=== PATIENT | female | born 1990 | race Caucasian/White ===

== ENCOUNTER 2016-11-20 10:24 | Emergency (ER) | payer OTHER ==
[~2016-11-20] VITALS: Ht 154.9 cm; Wt 91.8 kg
[~2016-11-20 10:24] MED LIST: PREDNISONE20 MG PO; VENTOLIN HFA18 GM IH
[2016-11-20 10:57] VITALS: BP 121/80
== END 2016-11-20 12:48 | disposition home or self-care (01) ==
LOC: EME 10:24
DX: J40 Bronchitis, not specified as acute or chronic (principal)
CPT/HCPCS: 94640; 99281; 99284

== ENCOUNTER 2017-03-06 00:34 | Emergency (ER) | payer OTHER ==
[~2017-03-06] VITALS: Ht 154.9 cm; Wt 90.5 kg
[2017-03-06 02:03] VITALS: BP 115/71
== END 2017-03-06 02:04 | disposition home or self-care (01) ==
LOC: EME 00:34
DX: S80.01XA Contusion of right knee, initial encounter (principal); S40.011A Contusion of right shoulder, initial encounter; W20.8XXA Other cause of strike by thrown, projected or falling object, initial encounter; R00.0 Tachycardia, unspecified
CPT/HCPCS: 73010; 73030; 73564; 99281; 99283

== ENCOUNTER 2017-06-07 18:51 | Emergency (ER) | payer OTHER ==
[~2017-06-07] VITALS: Ht 152.4 cm; Wt 82.5 kg
[2017-06-07 18:55] VITALS: BP 119/82
== END 2017-06-07 21:06 | disposition home or self-care (01) ==
LOC: EME 18:51
DX: S60.222A Contusion of left hand, initial encounter (principal); W22.8XXA Striking against or struck by other objects, initial encounter
CPT/HCPCS: 73130; 99281; 99284

== ENCOUNTER 2017-08-10 14:27 | Emergency (ER) | payer OTHER ==
[~2017-08-10] VITALS: Ht 152.4 cm; Wt 85.0 kg
[2017-08-10] MEDS ORDERED: VENTOLIN HFA18 GM IH (17:23)
[2017-08-10 17:28] VITALS: BP 135/68
== END 2017-08-10 17:29 | disposition home or self-care (01) ==
LOC: RME 14:27 → EME 14:27 → RME 17:29
DX: J45.901 Unspecified asthma with (acute) exacerbation (principal)
CPT/HCPCS: 71020; 80048; 84484; 85027; 93005; 94640; 99281; 99284

== ENCOUNTER 2017-10-14 14:13 | Emergency (ER) | payer OTHER ==
[~2017-10-14] VITALS: Ht 152.4 cm; Wt 87.0 kg
[2017-10-14] MEDS ORDERED: PREDNISONE20 MG PO (15:01)
[2017-10-14 15:39] VITALS: BP 136/98
== END 2017-10-14 15:40 | disposition home or self-care (01) ==
LOC: EME 14:13
DX: J45.901 Unspecified asthma with (acute) exacerbation (principal)
CPT/HCPCS: 71020; 99281; 99284; J7512

== ENCOUNTER 2017-11-21 15:52 | Emergency (ER) | payer OTHER ==
[~2017-11-21] VITALS: Ht 152.4 cm; Wt 85.6 kg
[2017-11-21 16:48] LABS: HEMATOCRIT 40.6 % (36.0-46.0); HEMOGLOBIN 13.4 G/DL (11.9-15.5); MCH 29.5 PG (29.0-34.0); MCV 89.2 FL (83-99); PLATELET COUNT 346 K/uL (156-360); RBC DIS.WIDTH-CV 13.2 % (11.8-14.6); RBC DIS.WIDTH-SD 43.2 % (39-53); RED BLOOD COUNT 4.55 M/uL (3.80-5.20); WHITE BLOOD COUNT 11.3 K/uL (4.1-10.2)
[2017-11-21 16:58] LABS: ALBUMIN 4.5 g/dL (3.2-4.8); CHLORIDE 107 mEq/L (99-109); POTASSIUM 3.7 mEq/L (3.7-5.4)
[2017-11-21 16:59] LABS: SODIUM 140 mEq/L (136-147)
[2017-11-21 17:01] LABS: GLUCOSE 109 mg/dL (70-99)
[2017-11-21 17:03] LABS: TOTAL BILIRUBIN 0.3 mg/dL (0.0-1.0)
[2017-11-21 17:04] LABS: ALKALINE PHOSPHATASE 51 IU/L (3-129); CREATININE 0.9 mg/dL (0.6-1.3); GFR ESTIMATE (CALCULATED) > 59 mL/min/
[2017-11-21 17:06] LABS: AST (GOT) 15 IU/L (2-34); UREA NITROGEN (BUN) 12 mg/dL (9-23)
[2017-11-21 17:07] LABS: ALT (GPT) 10 IU/L (3-49)
[2017-11-21 17:14] LABS: QUANTITATIVE HCG < 4.0 MIU/ML
[2017-11-21 18:01] LABS: LIPASE 465 U/L (1.0-51.0)
[2017-11-21 18:54] LABS: APPEARANCE CLOUDY ((CLEAR)); BILIRUBIN NEGATIVE; BLOOD NEGATIVE; COLOR YELLOW ((YELLOW)); GLUCOSE (STRIP) NEGATIVE; KETONES NEGATIVE; LEUKOCYTES NEGATIVE; NITRITE NEGATIVE; PROTEIN (STRIP) NEGATIVE; SPECIFIC GRAVITY 1.017 (1.000-1.030); UROBILINOGEN 0.2 MG/DL (0.2-1.0)
[2017-11-21 19:03] LABS: BACTERIA RARE /HPF; EPITHELIAL CELLS 2+ /HPF; MUCUS TRACE /LPF; RED BLOOD CELLS 0-5 /HPF (0-5); UCUL ADDED? NO; WHITE BLOOD CELLS 0-5 /HPF (0-5)
[2017-11-21] MEDS ORDERED: TRAMADOL HCL50 MG PO (21:41)
[2017-11-21] MEDS ORDERED: ZOFRAN ODT4 MG PO (21:41)
[2017-11-21] MEDS ORDERED: CITROMA296 ML PO (21:42)
[2017-11-21 22:01] VITALS: BP 94/69
== END 2017-11-21 22:02 | disposition home or self-care (01) ==
LOC: EME 15:52
DX: R10.31 Right lower quadrant pain (principal); R74.8 Abnormal levels of other serum enzymes; J45.909 Unspecified asthma, uncomplicated; F31.9 Bipolar disorder, unspecified
CPT/HCPCS: 74177; 76705; 80053; 81003; 83690; 84702; 85027; 99281; 99285; J2405; J3010; J7030

== ENCOUNTER 2017-11-23 16:37 | Emergency (ER) | payer OTHER ==
[~2017-11-23] VITALS: Ht 152.4 cm; Wt 87.0 kg
[~2017-11-23 16:37] MED LIST changes: +CITROMA296 ML PO; +TRAMADOL HCL50 MG PO; +ZOFRAN ODT4 MG PO
[2017-11-23 17:22] LABS: HEMATOCRIT 38.7 % (36.0-46.0); HEMOGLOBIN 12.9 G/DL (11.9-15.5); MCH 29.9 PG (29.0-34.0); MCHC 33.3 G/DL (30.0-36.0); MCV 89.8 FL (83-99); PLATELET COUNT 320 K/uL (156-360); RBC DIS.WIDTH-CV 13.2 % (11.8-14.6); RBC DIS.WIDTH-SD 43.8 % (39-53); RED BLOOD COUNT 4.31 M/uL (3.80-5.20); WHITE BLOOD COUNT 8.9 K/uL (4.1-10.2)
[2017-11-23 17:33] LABS: ALBUMIN 4.4 g/dL (3.2-4.8)
[2017-11-23 17:34] LABS: CHLORIDE 107 mEq/L (99-109); POTASSIUM 4.2 mEq/L (3.7-5.4); SODIUM 141 mEq/L (136-147)
[2017-11-23 17:36] LABS: GLUCOSE 98 mg/dL (70-99); TOTAL PROTEIN 7.6 g/dL (6.4-8.3)
[2017-11-23 17:38] LABS: TOTAL BILIRUBIN 0.3 mg/dL (0.0-1.0)
[2017-11-23 17:39] LABS: ALKALINE PHOSPHATASE 52 IU/L (3-129)
[2017-11-23 17:40] LABS: CREATININE 0.9 mg/dL (0.6-1.3); GFR ESTIMATE (CALCULATED) > 59 mL/min/
[2017-11-23 17:41] LABS: AST (GOT) 12 IU/L (2-34); DIRECT BILIRUBIN 0.1 mg/dL (0.0-0.3); UREA NITROGEN (BUN) 11 mg/dL (9-23)
[2017-11-23 17:43] LABS: ALT (GPT) 10 IU/L (3-49); LIPASE 19 U/L (1.0-51.0)
[2017-11-23] MEDS ORDERED: AUGMENTIN875 MG PO (18:22)
[2017-11-23 19:21] VITALS: BP 128/78
== END 2017-11-23 19:21 | disposition home or self-care (01) ==
LOC: EME 16:37
PROVIDERS: Emergency Medicine
DX: H66.91 Otitis media, unspecified, right ear (principal); R10.84 Generalized abdominal pain; J45.909 Unspecified asthma, uncomplicated; F31.9 Bipolar disorder, unspecified
CPT/HCPCS: 80048; 80076; 83690; 85027; 99281; 99283

== ENCOUNTER 2017-12-31 23:19 | Emergency (ER) | payer OTHER ==
[~2017-12-31] VITALS: Ht 152.4 cm; Wt 83.1 kg
[~2017-12-31 23:19] MED LIST changes: +AUGMENTIN875 MG PO
[2018-01-01 01:40] VITALS: BP 121/85
== END 2018-01-01 03:32 | disposition home or self-care (01) ==
LOC: EME 23:19
DX: S80.01XA Contusion of right knee, initial encounter (principal)
CPT/HCPCS: 73564; 99281; 99283

== ENCOUNTER 2018-01-08 11:34 | Emergency (ER) | payer OTHER ==
[~2018-01-08] VITALS: Ht 152.4 cm; Wt 85.1 kg
[2018-01-08 11:42] VITALS: BP 113/97
== END 2018-01-08 15:41 | disposition home or self-care (01) ==
LOC: EME 11:34
DX: M25.561 Pain in right knee (principal); R20.8 Other disturbances of skin sensation; Z90.49 Acquired absence of other specified parts of digestive tract
CPT/HCPCS: 73564; 93971; 99281; 99285